=== PATIENT | male | born 2005 | race Two or more races ===

== ENCOUNTER 2023-08-14 13:17 | Emergency (ER) | payer MEDICAID, OTHER ==
[~2023-08-14] VITALS: Ht 170.2 cm; Wt 63.6 kg
[2023-08-14] MEDS: KETOROLAC TROMETH 60MG/2ML VIAL IM ONE (15:01)
[2023-08-14 15:03] VITALS: BP 121/81; PULSE 115; RESP 18; TEMP 98.8; O2SAT 98
== END 2023-08-14 15:18 ==
LOC: ER 13:17
DX: M79.622 Pain in left upper arm; M79.621 Pain in right upper arm

== ENCOUNTER 2024-01-09 17:17 | Inpatient (IN) | payer OTHER, MEDICAID ==
[~2024-01-09] VITALS: Ht 175.3 cm; Wt 75.0 kg
[2024-01-09] MEDS: SODIUM CHLORIDE 0.9% 1,000 ML IV ONE (18:01)
[2024-01-09] MEDS: ONDANSETRON HCL 4 MG/2 ML VIAL IV ONE (18:01)
[2024-01-09 18:53] LABS: Anion Gap 8 (5-15); Carbon Dioxide 20 mmol/L (20-30); Chloride 115 mmol/L (98-107); Potassium 3.3 mmol/L (3.5-5.1); Sodium 143 mmol/L (136-145)
[2024-01-09 18:55] LABS: Basophils # (auto) 0 10 ^3/uL (0-0.2); Basophils % (auto) 0.3 % (0.0-2.0); Calcium 9.3 mg/dL (8.7-10.4); Eosinophils # (auto) 0 10 ^3/uL (0-0.8); Eosinophils % (auto) 0.2 % (0.0-7.0); Hematocrit 38.3 % (41.0-53.0); Hemoglobin 13.4 g/dL (13.5-17.5); Lymphocytes # (auto) 1.5 10 ^3/uL (0.4-5.4); Lymphocytes % (auto) 15.1 % (10.0-50.0); Mean Corpuscular Hemoglobin 26.9 pg (28.0-32.0); Monocytes # (auto) 0.6 10 ^3/uL (0-1.3); Monocytes % (auto) 6.3 % (0.0-12.0); Neutrophils # (auto) 7.8 10 ^3/uL (1.6-8.6); Neutrophils % (auto) 78.1 % (37.0-80.0); Nucleated Red Blood Cells % 0.5 %; Red Blood Cells 4.97 10^6/uL (4.5-5.90); White Blood Cell 9.9 10^3/uL (4.4-10.8)
[2024-01-09 18:59] LABS: BUN/Creatinine Ratio 7.3 (10.0-20.0); Blood Urea Nitrogen 6 mg/dL (9-23); Glucose 87 mg/dL (74-106)
[2024-01-09] MEDS ORDERED: DOCUSATE SOD 100 MG CAP PO PRN (19:30)
[2024-01-09] MEDS ORDERED: ONDANSETRON HCL 4 MG/2 ML VIAL IV PRN (19:30)
[2024-01-09] MEDS ORDERED: ACETAMINOPHEN 325 MG TAB PO PRN (19:30)
[2024-01-09] MEDS ORDERED: HYDROmorphone HCL 2 MG/ML VL/or syr IV PRN (19:30)
[2024-01-09 19:40] VITALS: PULSE 67; RESP 16; O2SAT 100
[2024-01-09 21:06] LABS: Erythrocyte Sedimentation Rate 2 mm/hr (0-20)
[2024-01-09] MEDS: SODIUM CHLOR 0.9% PF (SALINE LOCK) 10ML VIAL/SYR IV SCH (22:16)
[2024-01-09] MEDS: FOLIC ACID 1 MG TAB PO SCH (22:23)
[2024-01-10] MEDS: HYDROmorphone HCL 2 MG/ML VL/or syr IV ONE (07:21)
[2024-01-10] MEDS: HYDROcodone-ACET 5/325MG TAB PO PRN (07:29)
[2024-01-10 07:31] VITALS: PULSE 71; RESP 17; O2SAT 99
[2024-01-10] MEDS: LACTATED RINGER'S 1,000 ML IV ONE (07:38)
[2024-01-10 09:37] VITALS: BP 133/55; PULSE 76; RESP 20; TEMP 97.9; O2SAT 99
[2024-01-10] MEDS ORDERED: ENOXAPARIN SOD 40 MG/0.4 ML SYRINGE SC SCH (10:00)
[2024-01-10] MEDS: POTASSIUM EFFERVESENT TAB 25 MEQ PO ONE (10:05)
[2024-01-10 10:19] LABS: Erythrocyte Sedimentation Rate 2 mm/hr (0-20)
[2024-01-10 10:42] LABS: Basophils # (auto) 0 10 ^3/uL (0-0.2); Eosinophils # (auto) 0.1 10 ^3/uL (0-0.8); Hemoglobin 13.8 g/dL (13.5-17.5); Monocytes # (auto) 0.5 10 ^3/uL (0-1.3); Neutrophils % (auto) 72.6 % (37.0-80.0)
[2024-01-10 10:48] LABS: Basophils % (auto) 0.3 % (0.0-2.0); Eosinophils % (auto) 0.8 % (0.0-7.0); Hematocrit 38.9 % (41.0-53.0); Lymphocytes # (auto) 1.9 10 ^3/uL (0.4-5.4); Lymphocytes % (auto) 21.2 % (10.0-50.0); Mean Corpuscular Hemoglobin 26.9 pg (28.0-32.0); Mean Corpuscular Hgb Conc. 35.3 g/dL (32.0-36.0); Mean Corpuscular Volume 76.1 fL (80.0-100.0); Monocytes % (auto) 5.1 % (0.0-12.0); Neutrophils # (auto) 6.4 10 ^3/uL (1.6-8.6); Nucleated Red Blood Cells % 0.3 %; Red Blood Cells 5.12 10^6/uL (4.5-5.90); Red Cell Distribution Width 15.9 % (11.8-14.3); White Blood Cell 8.8 10^3/uL (4.4-10.8)
[2024-01-10 10:49] LABS: Alanine Aminotransferase 17 U/L (7-40); Albumin 4.3 g/dL (3.2-4.8); Alkaline Phosphatase 106 U/L (46-116); Anion Gap 6 (5-15); Aspartate Aminotransferase 13 U/L (13-40); BUN/Creatinine Ratio 10.2 (10.0-20.0); Blood Urea Nitrogen 9 mg/dL (9-23); Calcium 9.6 mg/dL (8.7-10.4); Carbon Dioxide 24 mmol/L (20-30); Chloride 112 mmol/L (98-107); Cholesterol 122 mg/dL (< 200); Glucose 119 mg/dL (74-106); HDL Cholesterol 30 mg/dL (40-59); LDL Cholesterol 91 mg/dL (< 100); Magnesium 1.6 mg/dL (1.6-2.6); Potassium 3.6 mmol/L (3.5-5.1); Sodium 142 mmol/L (136-145); Triglycerides 47 mg/dL (< 150)
[2024-01-10 10:50] LABS: Bilirubin, Total 1.3 mg/dL (0.2-1.0); Phosphorus 2.6 mg/dL (2.4-5.1)
[2024-01-10 10:58] LABS: INR 1.13 (0.9-1.15); Partial Thromboplastin Time 29.2 SEC (24.5-34.5); Prothrombin Time 11.9 sec (9.3-11.8)
== END 2024-01-10 11:18 | disposition left against medical advice (07) | DRG 662 ==
LOC: ER 17:17 → EDBD 17:17 → OVERFLOW 19:48
PROVIDERS: ADMIT Internal Medicine; ATTEND Internal Medicine
DX: D57.00 Hb-SS disease with crisis, unspecified (principal); E87.6 Hypokalemia; Z53.29 Procedure and treatment not carried out because of patient's decision for other reasons; Z79.899 Other long term (current) drug therapy
CPT/HCPCS: 36415; 73562; 80048; 80053; 80061; 82306; 82607; 83036; 83735; 84100; 84443; 85025; 85045; 85610; 85652; 85730; 86141; 86850; 86900; 86901; 86922; 93971; 96374; G0378; J2405